=== PATIENT | male | born 1955 | race Caucasian/White ===

== ENCOUNTER → 2016-09-03 | Outpatient (CLI) | payer MEDICARE ==
--- NOTE | 2016-09-03 16:06 | RAD ---
CT of the chest without contrast, 09/03/2016: History: Smoking history, lung cancer screening Multidetector CT imaging was performed utilizing a low-dose technique. There are mild scattered scattered linear opacities in the lungs, primarily located peripherally, compatible with scars. There are scattered parenchymal and subpleural lucencies compatible with emphysema. There is a small calcified nodule in the lateral aspect of the right upper lobe. There is a 4 mm, relatively smooth, noncalcified nodule in the right upper lobe as demonstrated on image 58 of series #2. It lies adjacent to a pulmonary vessel. No other pulmonary nodule, mass or area of significant consolidation is seen. There is no evidence of pleural fluid. There is calcific plaquing of the thoracic aorta without evidence of aneurysm. Moderate scattered coronary artery calcifications are present. Several small mediastinal lymph nodes are seen without definite pathologic enlargement. There are moderate scattered degenerative changes in the spine. IMPRESSION: 1. Mild emphysema with parenchymal scarring. 2. 4 mm noncalcified right upper lobe pulmonary nodule. This study is categorized as lung Lung-RADS category 2. CT follow-up in 12 months is suggested. 3. Moderate coronary artery calcifications. PQRS Compliance Statement: One or more of the following individualized dose reduction techniques were utilized for this examination: 1. Automated exposure control 2. Adjustment of the mA and/or kV according to patient size 3. Use of iterative reconstruction technique
== END | disposition home or self-care (01) ==
LOC: CT 10:51
PROVIDERS: ATTEND Family Medicine
DX: Z12.2 Encounter for screening for malignant neoplasm of respiratory organs (principal); F17.210 Nicotine dependence, cigarettes, uncomplicated; J43.9 Emphysema, unspecified; L90.5 Scar conditions and fibrosis of skin; I25.10 Atherosclerotic heart disease of native coronary artery without angina pectoris
CPT/HCPCS: 71250

== ENCOUNTER → 2017-07-29 | Outpatient (CLI) | payer OTHER | END | disposition home or self-care (01) | LOC: KCIC 08:25 | DX: J98.11 Atelectasis (principal); J90 Pleural effusion, not elsewhere classified; R05 Cough; Z87.891 Personal history of nicotine dependence | CPT/HCPCS: 71046 ==

== ENCOUNTER → 2017-08-12 | Outpatient (CLI) | payer OTHER | END | disposition home or self-care (01) | LOC: KCIC 10:03 | DX: S93.302A Unspecified subluxation of left foot, initial encounter (principal); M17.0 Bilateral primary osteoarthritis of knee; M85.80 Other specified disorders of bone density and structure, unspecified site; M79.89 Other specified soft tissue disorders; M18.12 Unilateral primary osteoarthritis of first carpometacarpal joint, left hand; M47.892 Other spondylosis, cervical region; Z96.643 Presence of artificial hip joint, bilateral; X58.XXXA Exposure to other specified factors, initial encounter; Y93.89 Activity, other specified; Y92.89 Other specified places as the place of occurrence of the external cause; Y99.8 Other external cause status | CPT/HCPCS: 72020; 72170; 73120; 73565; 73620 ==

== ENCOUNTER → 2018-12-15 | Outpatient (CLI) | payer OTHER ==
--- NOTE | 2018-12-15 12:55 | KCIC ---
Examination: CT LOW DOSE LUNG SCREENING History: 80 pack year smoking history. Patient reports stopping smoking 2 months ago. Comparison/Correlation: 11/17/2017 low-dose lung cancer screening CT exam Findings: Axial images of the chest were obtained according to low-dose lung cancer screening CT protocol. Sagittal and coronal reformatted images were provided. Small right pleural effusion is decreased in size compared to prior exam. No enlarged thoracic lymph nodes. Thoracic aortic morphology is unremarkable. Marked coronary arterial calcification is present. No pericardial effusion. Pulmonary hyperinflation is present. Centrilobular emphysema is present. Linear scarring or atelectasis at the anterior right mid thoracic level is decreased in the interval. Bony structures are unremarkable for age. Impression: Lungs rads category 1-negative. Annual low-dose lung cancer screening CT evaluation is recommended. Very small right pleural effusion. This is smaller compared to the prior exam. Centrilobular emphysema. COPD. PQRS Compliance Statement: One or more of the following individualized dose reduction techniques were utilized for this examination: 1. Automated exposure control 2. Adjustment of the mA and/or kV according to patient size 3. Use of iterative reconstruction technique Electronically signed by: Hao Berman MD (12/15/2018 12:52 PM) [facility]
== END | disposition home or self-care (01) ==
LOC: KCIC CT 08:12
PROVIDERS: ATTEND Family Medicine
DX: Z12.2 Encounter for screening for malignant neoplasm of respiratory organs (principal); J43.2 Centrilobular emphysema; J90 Pleural effusion, not elsewhere classified; I25.10 Atherosclerotic heart disease of native coronary artery without angina pectoris; I10 Essential (primary) hypertension; Z87.891 Personal history of nicotine dependence
CPT/HCPCS: G0297

== ENCOUNTER → 2019-04-30 | Outpatient (CLI) | payer OTHER ==
[2019-04-20 15:00] VITALS: BP 133/54
[~2019-04-30] MED LIST: ASPI-630 PO; BUPR150T6 PO; CITA40TA5 PO; FOLI1CAP10 PO; LISI30TA4 PO; METH2.5T PO; TOFA11TA PO; TRAM50TA PO; VENTOLIN HFA18 GM INH
[2019-04-30 11:46] LABS: BASO # 0.1 x10^3/uL (0.0-0.2); BASO % 1 % (0-3); EOS # 0.1 x10^3/uL (0.0-0.7); EOS % 2 % (0-3); HEMATOCRIT 32.8 % (39.0-53.0); HEMOGLOBIN 10.8 g/dL (13.0-17.5); LYMPH # 1.2 x10^3/uL (1.0-4.8); LYMPH % 14 % (24-48); MEAN CORPUSCULAR HEMOGLOBIN 30 pg (25-35); MEAN CORPUSCULAR HGB CONC 33 g/dL (31-37); MEAN CORPUSCULAR VOLUME 92 fL (79-100); MONO # 0.9 x10^3/uL (0.0-1.1); MONO % 10 % (0-9); NEUT # 6.3 x10^3/uL (1.8-7.7); NEUT % 73 % (31-73); PLATELET COUNT 341 x10^3/uL (140-400); RED BLOOD COUNT 3.58 x10^6/uL (4.30-5.70); RED CELL DISTRIBUTION WIDTH 15.6 % (11.5-14.5); WHITE BLOOD COUNT 8.5 x10^3/uL (4.0-11.0)
[2019-04-30 11:53] LABS: CREATININE 1.1 mg/dL (0.7-1.3); GFR 67.2
== END | disposition home or self-care (01) ==
LOC: SPEC 11:35
PROVIDERS: ATTEND Internal Medicine Infectious Disease
DX: Z79.2 Long term (current) use of antibiotics (principal)
CPT/HCPCS: 36415; 82565; 84520; 85025; 85651

== ENCOUNTER → 2019-05-07 | Outpatient (CLI) | payer OTHER ==
[2019-04-20 15:00] VITALS: BP 133/54
[~2019-05-07] MED LIST changes: +CITA20TA6 PO; +COLC0.6T42 PO; +LISI-334 PO; +OXYC1TAB22 PO
[2019-05-07 14:14] LABS: CREATININE 1.1 mg/dL (0.7-1.3); GFR 67.2; POTASSIUM 3.7 mmol/L (3.5-5.1)
[2019-05-07 14:24] LABS: BASO # 0.1 x10^3/uL (0.0-0.2); BASO % 1 % (0-3); EOS # 0.3 x10^3/uL (0.0-0.7); EOS % 2 % (0-3); HEMATOCRIT 32.3 % (39.0-53.0); HEMOGLOBIN 10.7 g/dL (13.0-17.5); LYMPH # 1.4 x10^3/uL (1.0-4.8); LYMPH % 9 % (24-48); MEAN CORPUSCULAR HEMOGLOBIN 30 pg (25-35); MEAN CORPUSCULAR HGB CONC 33 g/dL (31-37); MEAN CORPUSCULAR VOLUME 90 fL (79-100); MONO # 2.1 x10^3/uL (0.0-1.1); MONO % 14 % (0-9); NEUT # 10.9 x10^3/uL (1.8-7.7); NEUT % 74 % (31-73); PLATELET COUNT 302 x10^3/uL (140-400); RED BLOOD COUNT 3.59 x10^6/uL (4.30-5.70); RED CELL DISTRIBUTION WIDTH 16.1 % (11.5-14.5); WHITE BLOOD COUNT 14.8 x10^3/uL (4.0-11.0)
[2019-05-07 15:04] LABS: % BANDS 2 % (0-9); % BASOS 1 % (0-3); % EOS 1 % (0-5); % LYMPHS 16 % (24-48); % MONOS 13 % (0-10); % SEGS 67 % (35-66); PLT ESTIMATE ADEQUATE (ADEQUATE)
[2019-05-07 15:05] LABS: TOXIC GRANULATION SLIGHT
[2019-05-07 15:06] LABS: SCHISTOCYTES OCC
== END ==
LOC: SPEC 13:53
PROVIDERS: ATTEND Internal Medicine Infectious Disease
DX: Z51.81 Encounter for therapeutic drug level monitoring (principal); I10 Essential (primary) hypertension; J44.9 Chronic obstructive pulmonary disease, unspecified; M06.9 Rheumatoid arthritis, unspecified; Z79.2 Long term (current) use of antibiotics; Z87.891 Personal history of nicotine dependence; Z90.5 Acquired absence of kidney
CPT/HCPCS: 36415; 80048; 85007; 85025; 85651

== ENCOUNTER 2019-05-10 09:53 | Outpatient (CLI) | payer OTHER ==
[2019-04-20 15:00] VITALS: BP 133/54
[~2019-05-10] VITALS: Ht 190.5 cm; Wt 121.1 kg
[~2019-05-10 09:53] MED LIST changes: -CITA20TA6 PO; -COLC0.6T42 PO; -LISI-334 PO; -OXYC1TAB22 PO
[2019-05-10] MEDS ORDERED: CITA20TA6 PO (10:19)
[2019-05-10] MEDS ORDERED: OXYC1TAB22 PO (10:19)
[2019-05-10] MEDS ORDERED: LISI-334 PO (10:19)
[2019-05-10] MEDS ORDERED: TOFA11TA PO (10:19)
[2019-05-10] MEDS ORDERED: COLC0.6T42 PO (10:19)
--- NOTE | 2019-05-10 10:31 | NUR ---
Powerline removed at the bedside. Manual pressure held to entry site until hemostasis achieved. Sterile dressing applied. RN called to room to view site.
== END 2019-05-10 10:30 | disposition home or self-care (01) ==
LOC: INTRAD 09:53
PROVIDERS: ATTEND Internal Medicine Infectious Disease
DX: Z45.2 Encounter for adjustment and management of vascular access device (principal)
CPT/HCPCS: 36590